=== PATIENT | male | born 1995 | race Hispanic/Latino ===

== ENCOUNTER 2022-09-09 09:45 | Emergency (ER) | payer SELFPAY ==
[2022-09-09 09:55] VITALS: BP 109/64; PULSE 102; RESP 18; TEMP 38.9; O2SAT 99
--- NOTE | 2022-09-09 10:23 | ED.URI ---
HPI - URI/Sore Throat General Chief Complaint: Upper Respiratory Infection Stated Complaint: Coughing, Sore Throat, Fever Time Seen by Provider: 09/09/22 10:23 Source: patient and RN notes reviewed Mode of arrival: ambulatory Limitations: no limitations History of Present Illness HPI Narrative: 26-year-old male presents to the [facility] with complaints of cough, sore throat and fever that started 2 days ago. Has taken NyQuil. Denies any chest pain or abdominal pain. Related Data Allergies Allergy/AdvReac Type Severity Reaction Status Date / Time No Known Allergies Allergy Unknown Verified 09/09/22 10:43 Review of Systems Review of Systems: All systems reviewed & are unremarkable except as noted in HPI and below Constitutional: Constitutional: Reports as per HPI, Denies chills and Reports fever(s) Eyes: Eyes: Reports no additional eye complaints ENT: Reports as per HPI and Reports sore throat Cardiovascular: Cardiovascular: Reports no additional cardiovascular complaints Respiratory: Respiratory: Reports no additional respiratory complaints Gastrointestinal: Gastrointestinal: Reports no additional gastrointestinal complaints Musculoskeletal: Musculoskeletal: Reports no additional musculoskeletal complaints Integumentary/Breasts: Skin/Breast: Reports system reviewed and no additional complaints, except as docu Neurologic: Reports system reviewed and no additional complaints, except as documented Psychiatric: Psychiatric: Reports no additional psychiatric complaints Allergic/Immunologic: Allergic/Immunologic: Reports no additional allergic/immunologic complaints PMFSH Past Medical History Medical History (Updated 09/09/22 @ 20:43 by Renea Jin APRN) No significant medical problems Surgical History Surgical History (Updated 09/09/22 @ 20:43 by Renea Jin APRN) No history of previous surgery Social History Social History (Updated 09/09/22 @ 20:43 by Renea Jin APRN) Living arrangements: with family Occupation/Education: student Gender identity (if verbalized by the patient): Male Comments At the time of my signature, I reviewed and agree with the nursing past medical, surgical, social, and family history. There is no relevant family history pertinent to the patient complaint. Exam Const: General: comfortable, no acute distress, well developed, alert, ill appearing acutely (mild) and well nourished Nutritional Appearance: well nourished Orientation/consciousness: patient oriented x3 Limitations: no limitations HENMT: Head: normal to inspection Ears: external ears normal, TM's normal bilaterally and EAC's normal Face/Nose/Sinus: Normal external nose present and Normal nares present Face and sinus: normal facial exam Mouth: Yes Normal oral and palatal mucosa present, Yes lip normal and Yes moist mucous membranes Throat: uvula midline, abnormal tonsil bilateral erythema and hypertrophy 2+, posterior oropharynx abnormal erythema and no uvular edema Eyes: General: appearance normal, both eyes and all related structures Conjunctivae: conjunctivae normal Pupils: Equal, round and reactive pupils present Neck: Neck: normal visual inspection, full ROM, no lymphadenopathy and no meningeal signs Chest: Chest palpation & inspection: normal inspection of the chest Resp: Effort & Inspection: normal respiratory effort and no use of accessory muscles Auscultation: clear to auscultation bilaterally, no crackles, no rales, no rhonchi and no wheezes Cardio: Rate: regular rate Rhythm: regular rhythm Back/Spine/Pelvis: Cervical Spine: cervical ROM normal and No Cervical spine tenderness Thoracic/Lumbar Spine: thoracic and lumbar spine normal to inspection and thoraco-lumbar ROM normal Skin: General skin exam: normal color Rashes: no rashes Wounds: no wounds Neuro: General: patient oriented x3, moves all extremities, no meningeal signs and no focal motor deficits Cranial nerves: Yes Equa
[2022-09-09 10:47] VITALS: TEMP 38.8
[2022-09-09] MEDS: ACETAMINOPHEN 500 MG TABLET 1000 MG PO (10:47)
[2022-09-09 11:03] VITALS: TEMP 38.8
== END 2022-09-09 10:51 | disposition home or self-care (01) ==
PROVIDERS: Emergency Provider Nurse Practitioner; PCP Registered Nurse
DX: J02.0 Streptococcal pharyngitis (principal); Z20.822 Contact with and (suspected) exposure to COVID-19
CPT/HCPCS: 87426; 87804; 87880; 99213; A9270; C9803; G0463

== ENCOUNTER 2023-11-21 19:48 | Emergency (ER) | payer SELFPAY ==
--- NOTE | ~2023-11-21 | CT_ITS ---
EXAMINATION: CT abdomen pelvis w con INDICATION: Generalized abdominal pain TECHNIQUE: Computed tomographic images of the abdomen and pelvis were obtained after the administrati on of 100 cc of Omnipaque 350 intravenous contrast. The dose-length product (DLP) was 329.81 mGy-cm. Automated exposure control and iterative reconstruction technique were employed. COMPARISON: None available FINDINGS: Small nodules of the lung bases, measuring up to 3 mm, likely reflect old granulomatous dis ease. The heart size is normal. The liver, spleen, pancreas, gallbladder, and adrenal glands are norm al. The kidneys are unremarkable. A moderate volume of colonic stool is present. The appendix is norm al. The visualized osseous structures are unremarkable. No pathologically enlarged abdominal or pelvi c lymph nodes are identified. No free intraperitoneal gas or evidence of bowel obstruction. 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 IMPRESSION: 1. Constipation. Reviewed, dictated and finalized at location F. L OPERATOR IMPRESSION: 1. Constipation.
[2023-11-21 19:49] VITALS: BP 143/71; PULSE 71; RESP 20; TEMP 36.6; O2SAT 100
--- NOTE | 2023-11-21 19:55 | ECG_ITS ---
Measurements Intervals [place] Rate: 60 P: 74 AL: 162 QRS: 99 QRSD: 103 T: 56 QT: 381 QTc: 382 Interpretive Statements SINUS RHYTHM RIGHT AXIS DEVIATION INCOMPLETE RIGHT BUNDLE BRANCH BLOCK BORDERLINE ECG NO PREVIOUS ECG AVAILABLE FOR COMPARISON Electronically Signed On 11-22-2023 8:07:49 LEAD APPLIER by Price Ashton D.O.
[2023-11-21 20:12] LABS: Basophils Percent Auto 0.5 % (0.2-1.2); Eosinophils Absolute Auto 0.1 K/mm3 (0-0.3); Eosinophils Percent Auto 3.1 % (0-4.4); Hematocrit 46.3 % (42.0-52.0); Hemoglobin 14.8 g/dL (14.0-18.0); Immature Granulocyte Absolute 0.01 K/mm3 (0.00-0.031); Immature Granulocyte Percent A 0.3 % (0-0.5); Immature Platelet Fraction Pct 8.2 % (0.9-11.2); Mean Corpuscular Hemoglobin 27.7 pg (26-34); Mean Corpuscular Volume 86.5 fl (80-100); Mean Platelet Volume 11.5 fl (7.4-10.4); Monocytes Absolute Auto 0.8 K/mm3 (0.1-0.6); Monocytes Percent Auto 20.3 % (2.6-8.5); Neutrophils Absolute Auto 1.4 K/mm3 (1.3-6.7); Neutrophils Percent Auto 36.8 % (45.5-73.1); Platelet Count Result 126 k/mm3 (150-375); Red Blood Count 5.35 M/mm3 (4.6-6.20); Red Cell Distribution Width 12.5 % (11.5-14.5); White Blood Count 3.9 K/mm3 (4.5-10.0)
[2023-11-21 20:21] LABS: Alanine Aminotransferase 28 U/L (6-50); Albumin Level 4.2 g/dL (3.5-5.1); Alkaline Phosphatase 62 U/L (38-126); Anion Gap 9 mmol/L (8-16); Aspartate Amino Transferase 30 U/L (17-59); Bilirubin,Total 0.6 mg/dL (0.2-1.3); Blood Urea Nitrogen 13 mg/dL (9-20); Calcium 8.9 mg/dL (8.4-10.2); Carbon Dioxide 26 mmol/L (22-30); Chloride 103 mmol/L (98-107); Estimated CRCL calculation 143 ml/min; Estimated Glomerular Filt Rate > 60; Glucose 117 mg/dL (65-110); Lipase 66 U/L (23-300); Potassium 3.5 mmol/L (3.4-5.0); Sodium 138 mmol/L (137-145)
[2023-11-21 21:12] LABS: Appearance Urine Clear (Clear); Bilirubin Urine Negative (Negative); Blood Urine Negative (Negative); Color Urine Yellow (Yellow); Glucose Urine UA Negative (Negative); Ketones Urine Negative (Negative); Leukocyte Esterase Ur Negative LEU/UL (Negative); Nitrate Urine Negative (Negative); Protein Urine Negative (Negative); Specific Grav Ur 1.019 (1.001-1.035); Urobilinogen Urine 0.2 mg/dL (<2.0)
[2023-11-21 21:17] LABS: Add Urine Microscopic? NO
--- NOTE | 2023-11-21 22:30 | PC.NURSE ---
this rn assumed care of patient. this rn took patient report from mayuri white.
--- NOTE | 2023-11-21 22:45 | ED.ABDPAIN ---
HPI - Abdominal Pain General Chief Complaint: Abdominal Pain Stated Complaint: abd pain Time Seen by Provider: 11/21/23 22:24 History of Present Illness HPI narrative: 27-year-old male presents with his family at bedside for evaluation for generalized abdominal pain that started around for 430 this afternoon. Patient states the pain is generalized throughout his abdomen. States he had a fever yesterday around 100 that has since resolved with associated body aches and chills. Last bowel movement was around 4-5:00 p.m. and normal. He denies nausea or vomiting, diarrhea, dysuria or hematuria, cough or congestion. No prior abdominal surgeries. No prior medical history. Related Data Allergies Allergy/AdvReac Type Severity Reaction Status Date / Time No Known Allergies Allergy Unknown Verified 11/21/23 19:48 Review of Systems Review of Systems: CONSTITUTIONAL: Denies fever, chills, or sweats. EYES: Denies visual changes, redness, or discharge. ENT: Denies rhinorrhea, congestion, sore throat, or otalgia. CARDIOVASCULAR: Denies chest pain, palpitations, or edema. RESPIRATORY: Denies cough or dyspnea. GASTROINTESTINAL: See HPI GENITOURINARY: Denies dysuria or hematuria. SKIN: Denies rash or itching. MUSCULOSKELETAL: Denies back pain, joint pain, or myalgia. NEUROLOGIC: Denies headache, numbness, or weakness. PSYCHIATRIC: Denies anxiety or depression. [facility] Past Medical History Medical History No significant medical problems Surgical History Surgical History No history of previous surgery Social History Social History Living arrangements: with family Occupation/Education: student Gender identity (if verbalized by the patient): Male Exam Narrative: GENERAL: Non-toxic, appears uncomfortable, awake and conversational HEAD: Normocephalic, atraumatic. EYES: PERRLA and EOMI. ENT: Nares clear, no rhinorrhea or epistaxis. Mucous membranes moist. NECK: Supple. CHEST: Clear to auscultation. No respiratory distress. HEART: Regular rate and rhythm. No murmur heard. Normal peripheral pulses. ABDOMEN: normoactive bowel sounds. Generalized abdominal tenderness with guarding. No rebound or rigidity. No CVA tenderness. No overlying skin changes. EXTREMITIES: Normal range of motion. No edema. SKIN: Warm, dry, no rash. NEURO: No focal deficits. Alert and oriented x3 Course Vital Signs Vital signs: Vital Signs Temperature 97.9 F 11/21/23 19:49 Pulse Rate 71 11/21/23 19:49 Respiratory Rate 20 11/21/23 19:49 Blood Pressure 143/71 H 11/21/23 19:49 Pulse Oximetry 100 11/21/23 19:49 Oxygen Delivery Room Air 11/21/23 19:49 Temperature 97.9 F 11/21/23 19:49 Pulse Rate 60 11/22/23 00:29 Respiratory Rate 20 11/21/23 19:49 Blood Pressure 143/71 H 11/21/23 19:49 Pulse Oximetry 100 11/22/23 00:29 Oxygen Delivery Room Air 11/21/23 19:49 MDM - Abdominal Pain MDM Narrative Medical decision making narrative: 27-year-old male reports for evaluation for generalized abdominal pain since 03/02 this evening. See HPI for further history. Vitals are stable and he is afebrile. Exam is significant for generalized abdominal tenderness with guarding. EKG shows sinus rhythm, no ST elevations or depressions. CBC shows no leukocytosis. WBCs are 3.9 and platelets are 126, no prior for comparison. Chemistries are unremarkable. UA is unremarkable. Lipase is normal at 66. CT abdomen pelvis shows constipation. Patient is positive for flu B. Labs and imaging discussed with the patient. He received IV fluids and Toradol with improvement. Upon re-evaluation, he is resting comfortably in exam bed. Plan to discharge him home with Tamiflu and MiraLax. Encouraged follow-up with PCP. Strict ED return precautio
[2023-11-21] MEDS: KETOROLAC 30 MG/ML VIAL (*BKC) IV PUSH (23:11)
[2023-11-21] MEDS: SODIUM CHLORIDE 0.9% IV 1,000 ML 999 ML IV CONT (23:11)
[2023-11-22 00:29] VITALS: PULSE 60; O2SAT 100
[2023-11-22 00:29] LABS: Influenza A QL RT-PCR Negative (Negative); Influenza B QL RT-PCR Positive (Negative); RSV RNA, RT-PCR Negative (Negative); SARS-CoV-2 RNA PCR Negative (Negative)
== END 2023-11-22 01:28 | disposition home or self-care (01) ==
PROVIDERS: Student in an Organized Health Care Education/Training Program; Emergency Provider Physician Assistant
DX: J10.89 Influenza due to other identified influenza virus with other manifestations (principal); K59.00 Constipation, unspecified; Z20.822 Contact with and (suspected) exposure to COVID-19; I45.10 Unspecified right bundle-branch block
CPT/HCPCS: 36415; 74177; 80053; 81003; 83690; 85025; 85055; 87637; 93005; 96361; 96374; 99284; J1885; J7030; Q9967